=== PATIENT | male | born 1945 | race Hispanic/Latino ===

== ENCOUNTER 2022-02-12 20:23 | Emergency (ER) | payer BC, MEDICARE ==
[2022-02-12 21:36] VITALS: BP 138/67
--- NOTE | 2022-02-12 23:20 | XRay Report ---
XR chest routine 2V INDICATION / CLINICAL INFORMATION: Chest Pain, sob. COMPARISON: None available. FINDINGS: SUPPORT DEVICES: None. HEART /PULMONARY VASCULATURE: No significant abnormality. LUNGS / PLEURA: There is a 4.6 cm pleural-based opacity along the left lung base calcified granulomas in the right upper lung. Lungs are otherwise clear. No pleural effusion or pneumothorax. ADDITIONAL FINDINGS: No significant additional findings. IMPRESSION: 4.6 cm pleural-based opacity along the left lateral lung base. Unable to exclude mass. Recommend furt her evaluation with CT. Signer Name: Jay Ventura MD Signed: 02/12/2022 11:16 PM Workstation Name: [id number]
[2022-02-12 23:45] LABS: Alanine Aminotransferase 13 units/L (7-56); BUN/Creatinine Ratio 19; Blood Urea Nitrogen 21 mg/dL (9-20); Calcium 9.5 mg/dL (8.4-10.2); Hemolysis Index 12
[2022-02-12 23:47] LABS: Basophils # (Auto) 0.1 K/mm3 (0.0-0.1); Basophils % (Auto) 1.1 % (0.0-1.8); Eosinophils # (Auto) 0.6 K/mm3 (0.0-0.4); Eosinophils % (Auto) 9.5 % (0.0-4.3); Hemoglobin 12.9 gm/dl (11.8-15.2); Lymphocytes # (Auto) 1.9 K/mm3 (1.2-5.4); Lymphocytes % (Auto) 31.2 % (13.4-35.0); Mean Corpuscular HGB Conc 33 % (32-34); Mean Corpuscular Volume 98 fl (84-94); Monocytes # (Auto) 0.4 K/mm3 (0.0-0.8); Monocytes % (Auto) 7.1 % (0.0-7.3); Platelet Count 172 K/mm3 (140-440); Red Blood Count 3.98 M/mm3 (3.65-5.03); Red Cell Distribution Width 13.7 % (13.2-15.2)
[2022-02-12 23:53] LABS: Free T4 (Free Thyroxine) 0.86 ng/dL (0.76-1.46)
[2022-02-13 00:01] LABS: INR 0.92 (0.87-1.13)
[2022-02-13 04:55] LABS: Bilirubin,Urine NEG (Negative); Blood,Urine NEG (Negative); Color,Urine Yellow (Yellow); Protein,Urine <15 mg/dL mg/dL (Negative); Urobilinogen,Urine < 2.0 mg/dL (<2.0)
[2022-02-13 05:02] LABS: Amphetamine Screen,Urine Negative; Benzodiazepines Screen,Urine Negative; Cannabinoid Screen,Urine Negative; Cocaine Screen,Urine Negative; Methadone Screen,Urine Negative; Opiate Screen,Urine Negative
--- NOTE | 2022-02-13 05:30 | Cat Scan Report ---
CT CHEST WITH CONTRAST INDICATION / CLINICAL INFORMATION: Abnormal chest x-ray. TECHNIQUE: Axial CT images were obtained through the chest after 100 cc Omnipaque [address]. [address] scans at this location are performed using CT dose reduction for ALARA by means of automated exposure contr ol. COMPARISON: Same-day chest radiograph FINDINGS: THORACIC AORTA: Mild atherosclerotic calcification without acute abnormality. CORONARY ARTERY CALCIFICATION: Moderate coronary artery calcifications. HEART: No significant abnormality. MEDIASTINUM / SITA: No significant thoracic lymphadenopathy. LUNGS/PLEURA: No acute airspace disease. Calcified granulomas in the right upper lung. No suspicious nodule or mass. No pleural effusion or pneumothorax. ADDITIONAL CHEST FINDINGS: None. UPPER ABDOMEN: No acute finding SKELETAL SYSTEM: Multiple remote left-sided rib fracture deformities account for radiographic abnorma lity on the left chest wall. No acute findings. IMPRESSION: 1. No acute findings of the chest. 2. Remote left-sided rib fracture deformities account for radiographic abnormality of the left chest wall. No suspicious nodule or mass. Signer Name: Jay Ventura MD Signed: 02/13/2022 5:26 AM Workstation Name: [id number]
--- NOTE | 2022-02-13 05:31 | Emergency Department Report ---
ED General Adult HPI - General Chief complaint: Dizziness Stated complaint: HIGH BP PUI?: No Time Seen by Provider: 02/13/22 05:05 Source: patient Mode of arrival: Ambulatory Limitations: No Limitations - History of Present Illness Initial comments: Patient is a 76-year-old male presenting to ED with complaint of intermittent fa tigue and feeling dizzy beginning 2 days ago. States today he was walking through the grocery store when he felt unusually fatigued. States he was told he looked pale and that his eyes were red. He also reports that his blood pressure has been elevated over the past few days. He denies any chest pain. Reports mild shortness of breath during the episodes. - Related Data Allergies Allergy/AdvReac Type Severity Reaction Status Date / Time No Known Allergies Allergy Unverified 02/12/22 22:51 ED Review of Systems ROS: Stated complaint: HIGH BP Other details as noted in HPI Comment: All other systems reviewed and negative Constitutional: denies: chills, fever Respiratory: shortness of breath. denies: cough, wheezing Cardiovascular: denies: chest pain, palpitations, edema Gastrointestinal: denies: abdominal pain, nausea, diarrhea Genitourinary: denies: urgency, dysuria Musculoskeletal: denies: back pain, joint swelling, arthralgia Skin: denies: rash, lesions Neurological: denies: headache, weakness, paresthesias Psychiatric: denies: anxiety, depression ED Physical Exam - General Limitations: No Limitations General appearance: alert, in no apparent distress - Head Head exam: Present: atraumatic, normocephalic - Eye Eye exam: Present: normal appearance, EOMI - Neck Neck exam: Present: normal inspection - Respiratory Respiratory exam: Present: normal lung sounds bilaterally. Absent: respiratory distress - Cardiovascular Cardiovascular Exam: Present: regular rate, normal rhythm, normal heart sounds - GI/Abdominal GI/Abdominal exam: Present: soft. Absent: distended, tenderness - Rectal Rectal exam: Present: deferred - Extremities Exam Extremities exam: Present: full ROM. Absent: pedal edema - Neurological Exam Neurological exam: Present: alert, oriented X3 - Psychiatric Psychiatric exam: Present: normal affect, normal mood - Skin Skin exam: Present: warm, dry, intact, normal color ED Course Vital Signs 02/12/22 21:34 Temperature 98.1 F Pulse Rate 54 L Respiratory 16 Rate Blood Pressure 138/67 O2 Sat by Pulse 96 Oximetry ED Medical Decision Making - Lab Data Result diagrams: 02/12/22 23:06 02/12/22 23:06 - Medical Decision Making CBC, CMP and 2 sets of troponins grossly unremarkable. EKG sinus rhythm with first-degree AV block. Chest x-ray shows 4.6 cm pleural-based opacity in the left lateral base. CT chest obtained. Previously seen opacity not visualized. No acute findings. Patient stable for discharge home with return precautions. Critical care attestation.: If time is entered above; I have spent that time in minutes in the direct care of this critically ill patient, excluding procedure time. ED Disposition Clinical Impression: Dyspnea, Nonspecific dizziness, Fatigue Disposition: 01 HOME / SELF CARE / HOMELESS Is pt being admited?: No Does the pt Need Aspirin: No Condition: Stable Instructions: Shortness of Breath, Adult, [id number], Dizziness, [id number] Time of Disposition: 05:49
--- NOTE | 2022-02-13 12:33 | Electrocardiograph Report ---
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
== END 2022-02-13 06:03 | disposition home or self-care (01) ==
LOC: ED 20:23
DX: R06.00 Dyspnea, unspecified (principal); R53.83 Other fatigue; R42 Dizziness and giddiness
CPT/HCPCS: 36415; 71046; 71260; 80053; 80307; 81001; 83735; 84439; 84443; 84484; 85025; 85610; 93005; 99284; Q9967